=== PATIENT | female | born 1935 | race Caucasian/White ===

== ENCOUNTER → 2016-10-11 | Emergency (ER) | payer MEDICARE ==
[~2016-10-11] VITALS: Ht 152.4 cm; Wt 65.2 kg
[~2016-10-11] MED LIST: ACETAMINOPHEN650 M1 PO; ALLOPURINOL300 MG PO; ALPRAZOLAM0.5 MG PO; AMITRIPTYLINE H25 MG PO; ASPERCREME 1035.4 GM TOP; ASPIRIN EC325 MG PO; ASPIRIN EC81 MG PO; CIPRO250 MG PO; COLCRYS0.6 MG PO; COUGH DROPS5 MG MM; CRESTOR10 MG PO; CRESTOR5 MG PO; DULCOLAX10 MG PR; DULCOLAX5 MG; DULOXETINE HCL30 MG PO; FERROUS SULFAT325 MG PO; FLEET ENEMA133 ML PR; FUROSEMIDE40 MG PO; GLUCAGON HCL1 MG IM; HUMULIN N100 UNIT/1 SUB-Q; HUMULIN R100 UNIT/1 INJ; HYDROCODON-ACE1 EA10 PO; HYDROCODON-ACE1 EA11 PO; ISOSORBIDE MONO30 MG PO; ISOSORBIDE MONO60 MG PO; KEFLEX250 MG PO; KLOR-CON 1010 MEQ; KLOR-CON M2020 MEQ PO; LEVOFLOXACIN250 MG; LEVOTHYROXINE125 MCG PO; LIPITOR20 MG PO; LISINOPRIL40 MG PO; LISINOPRIL5 MG PO; LOPERAMIDE2 M1 PO; MILK OF MA400 MG/5 M PO; MULTI VITAMIN1 EACH PO; NORCO 5-325 TA1 EACH PO; NOVOLIN N100 UNIT/1 SUB-Q; NOVOLIN R100 UNIT/1 INJ; ONE A DAY VITAMIN PO; OSTEO BI-FLEX1 EAC2 PO; POTASSIUM CHLO10 MEQ PO; SENNA-S TABLET1 EACH PO; TOPROL XL50 MG PO; TRAMADOL HCL50 MG PO; ULTRAM50 MG PO; VITAMIN E400 UNI1 PO; ZOFRAN4 MG PO
== END ==
LOC: ED 17:13
PROC: 0T9B70Z Drainage of Bladder with Drainage Device, Via Natural or Artificial Opening (ICD-10-PCS; principal; 2016-10-11)
DX: S06.9X9A Unspecified intracranial injury with loss of consciousness of unspecified duration, initial encounter (principal); E11.9 Type 2 diabetes mellitus without complications; F41.9 Anxiety disorder, unspecified; F32.9 Major depressive disorder, single episode, unspecified; I10 Essential (primary) hypertension; E03.9 Hypothyroidism, unspecified; E78.5 Hyperlipidemia, unspecified; Z79.891 Long term (current) use of opiate analgesic; Z79.899 Other long term (current) drug therapy; Z79.4 Long term (current) use of insulin; Z79.82 Long term (current) use of aspirin; X58.XXXA Exposure to other specified factors, initial encounter
CPT/HCPCS: 51702; 70450; 80048; 81001; 85025; 96374; 99284; J1885